=== PATIENT | male | born 1995 | race African-American/Black ===

== ENCOUNTER 2017-10-25 19:16 | Emergency (ER) | payer SELFPAY ==
[~2017-10-25] VITALS: Ht 180.3 cm; Wt 70.0 kg
[2017-10-25 19:25] VITALS: BP 127/83; PULSE 110; RESP 18; TEMP 98.8; O2SAT 100
[2017-10-25] MEDS ORDERED: LIDOCAINE 1%/EPINEPHrine 1:100,000 SOLN 20 ML VIAL INFIL ONE (19:45)
[2017-10-25] MEDS ORDERED: TETANUS/DIPHTHERIA TOXOID ADULT 0.5 ML VIAL IM ONE (19:45)
[2017-10-25] MEDS ORDERED: IBUPROFEN 800 MG TAB PO ONE (19:45)
[2017-10-25] MEDS ORDERED: IBUP1TAB7 PO (19:57)
[2017-10-25] MEDS ORDERED: CEPH-460 PO (19:57)
--- NOTE | 2017-10-25 19:57 | PD ---
HPI Chief Complaint: Laceration/Skin Injury Time Seen by Provider: 19:34 Travel History International Travel<30 days: No Contact w/Intl Traveler<30days: No Traveled to known affect area: No History of Present Illness HPI 22-year-old male who is right-handed presents emergency department for evaluation of a laceration sustained to the anterior lateral aspect of his left hand. Patient states he was opening a knife kit with a knife when he slipped, cutting his hand. Patient reports moderate pain at the site, it is throbbing. It is exacerbated by touch. Patient is uncertain of his tetanus status. Denies any alterations in sensations or limitations in range of motion. Patient has no other symptoms to report. PFSH Past Medical History Medical History: Denies Significant Hx Diminished Hearing: No Tetanus Vaccination: Unknown Influenza Vaccination: No Past Surgical History Surgical History: No Previous Surgery Social History Alcohol Use: Yes (occasionally, drank today) Tobacco Use: No Substance Use: Yes (marijauna) Allergies-Medications (Allergen,Severity, Reaction): Coded Allergies: No Known Allergies (Unverified , 10/25/17) Reported Meds & Prescriptions Reported Meds & Active Scripts Active Ibuprofen 800 Mg Tab 800 Mg PO Q8H PRN Keflex (Cephalexin) 500 Mg Cap 500 Mg PO Q6H 5 Days Review of Systems Except as stated in HPI: all other systems reviewed are Neg Physical Exam Narrative GENERAL: Well-nourished, well-developed male patient in no acute distress. SKIN: No rashes, ecchymoses or lesions. Warm and dry. 5 cm laceration to the anterior lateral aspect of the left hand. No active bleeding. HEAD: Normocephalic. EYES: No scleral icterus. No injection or drainage. NECK: Supple, trachea midline. No JVD or lymphadenopathy. CARDIOVASCULAR: Regular rate and rhythm without murmurs, gallops, or rubs. RESPIRATORY: Breath sounds equal bilaterally. No accessory muscle use. MUSCULOSKELETAL: No cyanosis, or edema. Patient has full flexion-extension of all digits of the left hand. Patient can give a full thumbs up and touch his thumb to each of the digits without difficulty. Cap refill within normal limits. BACK: Nontender without obvious deformity. No CVA tenderness. Data Data Last Documented VS Vital Signs Date Time Temp Pulse Resp B/P (MAP) Pulse Ox O2 Delivery O2 Flow Rate FiO2 10/25/17 19:25 98.8 110 18 127/83 (98) 100 Orders Orders Lidocai-Epi 1%-1:100,000 Inj (Xylocaine- (10/25/17 19:45) Tetanus/Diphtheria Tox Adult (Tetanus/Di (10/25/17 19:45) Ibuprofen (Motrin) (10/25/17 19:45) Ed Discharge Order (10/25/17 19:55) MDM Medical Decision Making Medical Screen Exam Complete: Yes Emergency Medical Condition: Yes Medical Record Reviewed: Yes Differential Diagnosis Laceration superficial versus deep versus abrasion versus avulsion Narrative Course 22-year-old male presents emergency department with a laceration to the anterior lateral aspect of his left hand. Patient has no obvious tendon involvement. He has no limitation in range of motion. No alterations in sensation. Laceration is cleansed and approximated without difficulty. Patient is counseled on care. He agrees to return immediately with any acute worsening symptoms. Procedures Procedure Narrative LACERATION LOCATION: Left hand LENGTH: 5 cm NUMBER OF STITCHES/AUNG: 7 sutures REPAIR: The area of the laceration was prepped with Betadine and sterilely draped. The laceration was infiltrated with 1% lidocaine with epinephrine. The wound was copiously irrigated and explored without evidence of foreign body , tendon injury or neurovascular injury. The wound was closed using 4-0 Prolene. This was a single layer repair. A sterile dressing was applied. The patient was advised to keep the dressing clean and dry. Patient tolerated the procedure well. Diagnosis Primary Impression: Laceration of hand Qualified Codes: S61.412A - Laceration without foreign body of left hand, initial encounter Referrals: Primary Care Physician Patient Instructions: General Instructions, Laceration (ED) Additional Instructions: Sutures are to be removed in 10 days. This can be done at your primary care provider's office or your local emergency department Elevate to reduce pain and swelling Keep the area clean and dry Return immediately to the emergency department with any acute worsening symptoms Med/Other Pt SpecificInfo: Prescription(s) given Scripts Ibuprofen (Ibuprofen) 800 Mg Tab 800 MG PO Q8H Y for PAIN SCALE 1 TO 10, #30 TAB 0 Refills Prov: Brooklyn Reilly 10/25/17 Cephalexin (Keflex) 500 Mg Cap 500 MG PO Q6H for Infection for 5 Days, #20 CAP 0 Refills Prov: Brooklyn Reilly 10/25/17 Disposition: 01 DISCHARGE HOME Condition: Stable Brooklyn Reilly Oct 25, 2017 19:57
== END 2017-10-25 21:38 | disposition home or self-care (01) ==
LOC: NEPD 19:16
DX: S61.412A Laceration without foreign body of left hand, initial encounter (principal); W26.0XXA Contact with knife, initial encounter; Z23 Encounter for immunization
CPT/HCPCS: 12002; 90471; 90714